=== PATIENT | male | born 1995 | race Caucasian/White ===

== ENCOUNTER 2021-07-03 17:54 | Emergency (ER) | payer OTHER, SELFPAY ==
[2021-07-03 17:57] VITALS: BP 145/100; PULSE 100; RESP 16; TEMP 36.6; O2SAT 99; BMI 19.3
--- NOTE | 2021-07-03 19:31 | EDS_ITS ---
HPI History of Present Illness Chief Complaint: Occup Expose Narrative Narrative: 26-year-old male presenting with left index finger. 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 He states this was a young person that he was not concerned with having multiple diseases. He thought nothing of it and 2 days later he was sent to the ED for evaluation. Patient describes no pain or illness. ROS ROS ED Constitutional Constitutional ED: Denies chills or fever(s) Eyes Eyes: Denies blurry vision or diplopia ENT ENT ED: Denies rhinorrhea or sore throat Cardiovascular Cardiovascular: Denies chest pain or palpitations Respiratory/Chest Respiratory/Chest: Denies cough or dyspnea Gastrointestinal Gastrointestinal: Denies abdominal pain or nausea Genitourinary Genitourinary ED: Denies dysuria or hematuria Musculoskeletal Musculoskeletal: Denies arthralgias or myalgias Integumentary Denies Abrasions or rash Neurologic Neurologic: Denies headache(s) or paresthesias PFSH PFSH Allergy/AdvReac Type Severity Reaction Status Date / Time No Known Allergies Allergy Verified 07/03/21 17:56 Social History Smoking Status: Never smoker EXAM Physical Exam Const Vital Signs: 07/03/21 17:57 Temperature 97.9 F Temperature Source Temporal Pulse Rate 100 Respiratory Rate 16 Blood Pressure 145/100 H Blood Pressure Mean 115 Pulse Ox 99 Oxygen Delivery Method Room Air Positive well nourished General Appearance ED: NAD HEENT normocephalic and atraumatic Resp normal respiratory effort and clear to auscultation bilaterally Cardio regular rate and regular rhythm Extremity normal to inspection and full ROM General Extremety ED: Yes deformity; Negative for edema General Extremity: deformity; Negative for edema Neuro oriented x3 and CN's II-XII intact bilaterally Sensorium / Orientation: alert Psych mental status grossly normal Skin Lesions: no lesions Rashes: no rashes MDM MDM MDM Narrative Medical decision making narrative: Patient has no pain or no injuries visualized. He is here for blood work. This was ordered. I feel the patient at this time can be discharged home as he has no concern about other infectious etiologies. Patient will be discharged home in stable condition. Impression: 1. Occupational exposure 2. Needlestick injury Discharge Plan Triage Chief Complaint: Occup Expose ED Provider: Winston Monte Dx/Rx/DC Orders Instructions: ED Body Fluid Exposure Not ... Primary Care Provider: Care Physician,No Primary Referrals: NOT,DEFINED [NON-STAFF] - Clinic,NOW [NON-STAFF] - As soon as possible Activity Restrictions/Additional Instructions: No restrictions Disposition Disposition: Home, Self Care
[2021-07-03 19:43] VITALS: RESP 16
[2021-07-03 22:19] LABS: HIV - WCH Non-Reactive (Nonreactive); Hepatitis B Surface Antibody Non-Reactive; Hepatitis B Surface Antigen Non-Reactive (Nonreactive); Hepatitis C Antibody Non-Reactive (Nonreactive)
== END 2021-07-03 19:46 | disposition home or self-care (01) ==
LOC: ED 19:30
PROVIDERS: Emergency Provider Student in an Organized Health Care Education/Training Program
DX: S69.82XA Other specified injuries of left wrist, hand and finger(s), initial encounter (principal); Z77.21 Contact with and (suspected) exposure to potentially hazardous body fluids; W46.1XXA Contact with contaminated hypodermic needle, initial encounter; Y93.89 Activity, other specified; Y92.512 Supermarket, store or market as the place of occurrence of the external cause; Y99.0 Civilian activity done for income or pay
CPT/HCPCS: 86703; 86706; 86803; 87340; 99282